=== PATIENT | female | born 1990 | race Two or more races ===

== ENCOUNTER 2016-10-10 20:38 | Emergency (ER) | payer MEDICAID ==
[~2016-10-10] VITALS: Ht 167.6 cm; Wt 57.0 kg
[2016-10-10] MEDS ORDERED: KETOROLAC 60MG/2ML VIAL IM ONE (22:45)
[2016-10-11] MEDS ORDERED: PENICILLIN G BENZATHINE 1,200,000 UNITS/2ML SYR IM ONE (02:30)
[2016-10-11 03:53] VITALS: BP 116/72
== END 2016-10-11 03:53 | disposition home or self-care (01) ==
LOC: ER 20:38
DX: H10.9 Unspecified conjunctivitis (principal); J02.9 Acute pharyngitis, unspecified
CPT/HCPCS: 96372; 99284; J0561; J1885